=== PATIENT | male | born 1970 | race Caucasian/White ===

== ENCOUNTER 2017-03-20 06:16 | Emergency (ER) | payer SELFPAY ==
[~2017-03-20] VITALS: Ht 172.7 cm; Wt 71.8 kg
[2017-03-20 06:18] VITALS: BP 161/99
== END 2017-03-20 06:49 | disposition home or self-care (01) ==
LOC: ED 06:40
DX: K08.89 Other specified disorders of teeth and supporting structures (principal); Z59.0 Homelessness
CPT/HCPCS: 99283